=== PATIENT | male | born 1965 | race Asian ===

== ENCOUNTER 2023-11-25 13:15 | Emergency (ER) | payer OTHER ==
[~2023-11-25] VITALS: Ht 167.6 cm; Wt 100.0 kg
[2023-11-25] MEDS ORDERED: ANTIPSYCHOTIC IM (13:23)
[2023-11-25 13:24] VITALS: BP 117/71; PULSE 98; RESP 18; TEMP 98.6; O2SAT 96
[2023-11-25] MEDS ORDERED: AMOX1TAB15 PO (15:41)
[2023-11-25] MEDS ORDERED: CARB-223 AU (15:42)
== END 2023-11-25 16:00 | disposition home or self-care (01) ==
LOC: EMS 13:15
DX: H66.93 Otitis media, unspecified, bilateral (principal); F20.9 Schizophrenia, unspecified; F17.210 Nicotine dependence, cigarettes, uncomplicated; F15.90 Other stimulant use, unspecified, uncomplicated
CPT/HCPCS: 99283; Z7502